=== PATIENT | female | born 1940 | race Caucasian/White ===

== ENCOUNTER 2016-06-28 08:05 | Inpatient (IN) | payer MEDICARE, OTHER ==
[~2016-06-28] VITALS: Ht 172.7 cm; Wt 91.0 kg
[2016-06-28 09:09] LABS: Basophils # (auto) 0 uL; Basophils % (auto) 0.3 % (0.0-2.0); Eosinophils # (auto) 0.1 uL; Eosinophils % (auto) 0.8 % (0.0-7.0); Hematocrit 37.7 % (36.0-46.0); Hemoglobin 12.3 g/dL (12.2-16.2); Lymphocytes # (auto) 1.4 uL; Lymphocytes % (auto) 16.5 % (10.0-50.0); Mean Corpuscular Hemoglobin 29.3 pg (28.0-32.0); Mean Corpuscular Hgb Conc. 32.7 g/dL (32.0-36.0); Mean Corpuscular Volume 89.5 fL (80.0-100.0); Monocytes # (auto) 0.6 uL; Monocytes % (auto) 7.3 % (0.0-12.0); Neutrophils # (auto) 6.3 uL; Neutrophils % (auto) 75.1 % (37.0-80.0); Platelet Count (auto) 306 10^3/uL (140-450); Red Cell Distribution Width 16.3 % (11.6-16.0); White Blood Cell 8.4 10^3/uL (4.4-10.8)
[2016-06-28 09:25] LABS: Albumin 3.1 g/dL (3.4-5.0); Anion Gap 11 (5-15); Aspartate Aminotransferase 23 U/L (15-37); BUN/Creatinine Ratio 17.2; Blood Urea Nitrogen 17 mg/dL (7-18); Calcium 8.8 mg/dL (8.5-10.1); Carbon Dioxide 25 mmol/L (21-32); Chloride 102 mmol/L (98-107); GFR African American 70 mL/min; GFR Non-African American 58 mL/min; Glucose 244 mg/dL (74-106); Sodium 138 mmol/L (136-145)
[2016-06-28 09:29] LABS: Alkaline Phosphatase 83 U/L (45-117); Bilirubin, Total 0.5 mg/dL (0.2-1.0); Total Protein 7.7 g/dL (6.4-8.2)
[2016-06-28] MEDS ORDERED: LORazepam 0.5 MG TAB PO ONE (09:45)
[2016-06-28] MEDS ORDERED: NITROGLYCERIN 0.2MG/HR TOPICAL PATCH TD ONE ×2 (09:45→12:30)
[2016-06-28] MEDS ORDERED: ASPirin 325 MG TAB PO ONE (09:45)
[2016-06-28 10:15] LABS: B-Type Natriuretic Peptide 234.02 pg/mL (0-100); Temperature: 24.1 C (20.0-25.0)
[2016-06-28 10:27] LABS: Partial Thromboplastin Time 28.9 sec (22.64-33.71)
[2016-06-28] MEDS ORDERED: MORPHINE SULF INJ 2 MG/ML SYRINGE 1ML IV PRN (12:30)
[2016-06-28] MEDS ORDERED: DEXTROSE (50%) 50ML SYRG IV PRN (12:30)
[2016-06-28] MEDS ORDERED: FUROSEMIDE 40 MG TAB PO ONE (12:30)
[2016-06-28] MEDS ORDERED: NITROGLYCERIN 0.4 MG SL TAB SL PRN (12:30)
[2016-06-28] MEDS ORDERED: POTASSIUM CHL 20 Meq TABLET PO ONE (12:30)
[2016-06-28 12:34] LABS: Urine RBC None Seen /hpf (0 - 4)
[2016-06-28] MEDS ORDERED: LEVOTHYROXINE SODIUM 50 MCG TAB PO ONE (12:45)
[2016-06-28] MEDS ORDERED: PANTOPRAZOLE 40 MG TAB PO ONE (12:45)
[2016-06-28] MEDS ORDERED: METOPROLOL TARTRATE 50 MG TAB PO ONE (12:45)
[2016-06-28] MEDS ORDERED: ASPirin 81 mg TAB PO ONE (12:45)
[2016-06-28 12:57] LABS: Urine Bilirubin Negative (Negative); Urine Blood Negative /uL (Negative); Urine Color Yellow (Yellow); Urine Glucose Normal (Normal); Urine Ketone Negative (Negative); Urine Nitrite Negative (Negative); Urine Squamous Epithelial Cell FEW /hpf (<5); Urine Urobilinogen Normal (Negative)
[2016-06-28 13:49] LABS: Prothrombin Time 11.3 sec (9.37-12.3)
[2016-06-28 16:50] VITALS: BP 135/45
[2016-06-28 17:00] VITALS: BP 135/45
[2016-06-28] MEDS: InsuLIN REG 1unit/0.01ml Soln (100units/ml) SC SCH ×2 (17:26→22:26)
[2016-06-28] MEDS: ACCU-CHEK COMFORT CURVE STRIP VI SCH ×2 (17:26→22:19)
[2016-06-28 20:00] VITALS: BP 132/53
[2016-06-28 22:00] VITALS: BP 132/53
[2016-06-28] MEDS: METOPROLOL TARTRATE 50 MG TAB PO SCH (22:00)
[2016-06-28] MEDS: ATORVASTATIN 20 MG TAB PO SCH (22:25)
[2016-06-29 05:12] VITALS: BP 131/62
[2016-06-29] MEDS: ACCU-CHEK COMFORT CURVE STRIP VI SCH ×4 (06:11→22:02)
[2016-06-29 06:16] LABS: Basophils # (auto) 0 uL; Basophils % (auto) 0.3 % (0.0-2.0); Eosinophils # (auto) 0.1 uL; Eosinophils % (auto) 1.2 % (0.0-7.0); Hematocrit 39.3 % (36.0-46.0); Lymphocytes # (auto) 1.6 uL; Lymphocytes % (auto) 17.7 % (10.0-50.0); Mean Corpuscular Hemoglobin 29.4 pg (28.0-32.0); Mean Corpuscular Volume 89.3 fL (80.0-100.0); Mean Platelet Volume 6.9 fL (7.4-10.4); Monocytes # (auto) 0.8 uL; Monocytes % (auto) 9.5 % (0.0-12.0); Neutrophils # (auto) 6.4 uL; Neutrophils % (auto) 71.3 % (37.0-80.0); Platelet Count (auto) 312 10^3/uL (140-450); Red Cell Distribution Width 16.1 % (11.6-16.0); White Blood Cell 8.9 10^3/uL (4.4-10.8)
[2016-06-29] MEDS: LEVOTHYROXINE SODIUM 50 MCG TAB PO SCH (06:16)
[2016-06-29] MEDS: InsuLIN REG 1unit/0.01ml Soln (100units/ml) SC SCH ×4 (06:17→22:19)
[2016-06-29 06:38] LABS: BUN/Creatinine Ratio 19.4; Calcium 8.8 mg/dL (8.5-10.1); Potassium 3.8 mmol/L (3.5-5.1)
[2016-06-29 08:00] VITALS: BP 120/51
[2016-06-29 08:30] VITALS: BP 120/51
[2016-06-29] MEDS ORDERED: ADENOSINE 76 MG in GIVE UN-DILUTED 0 ML IV STA (08:40)
[2016-06-29] MEDS ORDERED: POTASSIUM CHL 20 Meq TABLET PO SCH (10:00)
[2016-06-29] MEDS ORDERED: FUROSEMIDE 40 MG TAB PO SCH (10:00)
[2016-06-29] MEDS ORDERED: HYDROcodone-ACET 5/325MG TAB PO PRN (11:30)
[2016-06-29] MEDS: METOPROLOL TARTRATE 50 MG TAB PO SCH ×2 (11:52→22:01)
[2016-06-29] MEDS: PANTOPRAZOLE 40 MG TAB PO SCH (11:52)
[2016-06-29] MEDS: NITROGLYCERIN 0.2MG/HR TOPICAL PATCH TD SCH (11:53)
[2016-06-29] MEDS: ASPirin 81 mg TAB PO SCH (11:54)
[2016-06-29] MEDS: INSULIN DETEMIR(LEVEMIR) 1unit/0.01ml Soln (100units/ml) SC SCH ×2 (12:23→22:20)
[2016-06-29 13:19] VITALS: BP 141/55
[2016-06-29 16:54] VITALS: BP 128/81
[2016-06-29] MEDS ORDERED: FUROSEMIDE 20 MG TAB PO ONE (18:30)
[2016-06-29] MEDS ORDERED: POTASSIUM CHL 20 Meq TABLET PO ONE (18:30)
[2016-06-29 22:00] VITALS: BP 104/54
[2016-06-29] MEDS: ATORVASTATIN 20 MG TAB PO SCH (22:01)
[2016-06-30 05:00] VITALS: BP 119/59
[2016-06-30] MEDS: ACCU-CHEK COMFORT CURVE STRIP VI SCH ×2 (06:44→11:47)
[2016-06-30] MEDS: LEVOTHYROXINE SODIUM 50 MCG TAB PO SCH (06:44)
[2016-06-30] MEDS: InsuLIN REG 1unit/0.01ml Soln (100units/ml) SC SCH ×2 (06:45→11:52)
[2016-06-30 08:00] VITALS: BP 131/59
[2016-06-30 09:20] VITALS: BP 131/59
[2016-06-30] MEDS ORDERED: POTASSIUM CHL 20 Meq TABLET PO SCH (10:00)
[2016-06-30] MEDS: NITROGLYCERIN 0.2MG/HR TOPICAL PATCH TD SCH (10:00)
[2016-06-30] MEDS ORDERED: FUROSEMIDE 20 MG TAB PO SCH (10:00)
[2016-06-30] MEDS: ASPirin 81 mg TAB PO SCH (10:36)
[2016-06-30] MEDS: METOPROLOL TARTRATE 50 MG TAB PO SCH (10:36)
[2016-06-30] MEDS: PANTOPRAZOLE 40 MG TAB PO SCH (10:36)
[2016-06-30] MEDS: INSULIN DETEMIR(LEVEMIR) 1unit/0.01ml Soln (100units/ml) SC SCH (11:32)
[2016-06-30 12:30] VITALS: BP 158/65
[2016-06-30 14:09] VITALS: BP 158/65
== END 2016-06-30 14:25 | disposition home health service (06) | DRG 292 ==
LOC: ER 08:07 → TELE 08:08 → TELE-WESTW 17:05
PROVIDERS: ADMIT Internal Medicine; ATTEND Internal Medicine
DX: I11.0 Hypertensive heart disease with heart failure (principal); E44.1 Mild protein-calorie malnutrition; I25.10 Atherosclerotic heart disease of native coronary artery without angina pectoris; I50.33 Acute on chronic diastolic (congestive) heart failure; E11.9 Type 2 diabetes mellitus without complications; E66.9 Obesity, unspecified; E03.9 Hypothyroidism, unspecified; I05.0 Rheumatic mitral stenosis; I48.91 Unspecified atrial fibrillation; Z95.1 Presence of aortocoronary bypass graft; Z86.73 Personal history of transient ischemic attack (TIA), and cerebral infarction without residual deficits; Z68.30 Body mass index [BMI] 30.0-30.9, adult; Z90.710 Acquired absence of both cervix and uterus; Z90.49 Acquired absence of other specified parts of digestive tract
CPT/HCPCS: 36415; 71020; 78452; 80048; 80053; 80061; 81001; 82962; 83036; 83735; 83880; 84443; 84484; 85025; 85610; 85730; 87081; 93005; 93017; 93306; J0153; J1815

== ENCOUNTER → 2016-10-20 | Outpatient (CLI) | payer MEDICARE, OTHER | END | disposition home or self-care (01) | LOC: XYW 10:43 | PROVIDERS: ATTEND Internal Medicine Cardiovascular Disease | DX: I08.0 Rheumatic disorders of both mitral and aortic valves (principal); I70.0 Atherosclerosis of aorta; I10 Essential (primary) hypertension | CPT/HCPCS: 93306 ==

== ENCOUNTER → 2016-11-30 | Outpatient (CLI) | payer MEDICARE, MEDICAID ==
[~2016-11-30] MED LIST: AGG25C PO; HYDR12.56 PO; INSU1INJ15 SC; LEVEMIR SC; LISI-275 PO; METO-159 PO
[2016-11-30 14:08] LABS: Basophils # (auto) 0.1 uL; Basophils % (auto) 0.9 % (0.0-2.0); Eosinophils # (auto) 0.1 uL; Eosinophils % (auto) 1.1 % (0.0-7.0); Hematocrit 44.5 % (36.0-46.0); Hemoglobin 14.9 g/dL (12.2-16.2); Mean Corpuscular Hemoglobin 29.9 pg (28.0-32.0); Mean Corpuscular Hgb Conc. 33.4 g/dL (32.0-36.0); Mean Corpuscular Volume 89.5 fL (80.0-100.0); Mean Platelet Volume 6.8 fL (6.9-10.8); Monocytes # (auto) 1.1 uL; Monocytes % (auto) 10.2 % (0.0-12.0); Neutrophils # (auto) 6.4 uL; Neutrophils % (auto) 59.8 % (37.0-80.0); Nucleated Red Blood Cells % 0.1 %; Platelet Count (auto) 281 10^3/uL (140-450); Red Cell Distribution Width 15.6 % (11.8-14.3); White Blood Cell 10.7 10^3/uL (4.4-10.8)
[2016-11-30 14:56] LABS: INR 0.97 (0.9-1.15); Partial Thromboplastin Time 23.4 sec (22.64-33.71); Prothrombin Time 10.6 sec (9.37-12.3)
[2016-11-30 17:18] LABS: Albumin 3.4 g/dL (3.4-5.0); BUN/Creatinine Ratio 19.3; Bilirubin, Total 0.4 mg/dL (0.2-1.0); Calcium 9.2 mg/dL (8.5-10.1); Total Protein 8.5 g/dL (6.4-8.2)
== END | disposition home or self-care (01) ==
LOC: LAB 13:14
PROVIDERS: ATTEND Internal Medicine Cardiovascular Disease
DX: Z01.818 Encounter for other preprocedural examination (principal); I05.0 Rheumatic mitral stenosis; Z79.01 Long term (current) use of anticoagulants
CPT/HCPCS: 36415; 80053; 85025; 85610; 85730

== ENCOUNTER 2016-12-01 07:00 | Day surgery (SDC) | payer MEDICARE, MEDICAID ==
[~2016-12-01] VITALS: Ht 172.7 cm; Wt 91.0 kg
[2016-12-01] MEDS ORDERED: ANGIOMAX 250 MG VIAL IV ONE (07:43)
[2016-12-01] MEDS ORDERED: SODIUM CHL 0.9% 0 ML ONE (07:44)
[2016-12-01] MEDS ORDERED: MIDAZOLAM HCL 1MG/1ML-2 ML VIAL ONE (07:44)
[2016-12-01] MEDS ORDERED: fentaNYL CITRATE 100 MCG/2 ML VL ONE (07:44)
[2016-12-01] MEDS ORDERED: IOHEXOL 350 MG/ML 100ML IJ ONE (07:50)
[2016-12-01] MEDS ORDERED: LIDOCAINE 2%HCL (LOCAL ANESTH.) INJ 20ML MDV ONE (07:50)
[2016-12-01] MEDS ORDERED: METO-159 PO (08:09)
[2016-12-01] MEDS ORDERED: HYDR12.56 PO (08:09)
[2016-12-01] MEDS ORDERED: AGG25C PO (08:09)
[2016-12-01] MEDS ORDERED: LISI-275 PO (08:09)
[2016-12-01] MEDS ORDERED: LEVEMIR SC (08:09)
[2016-12-01] MEDS ORDERED: INSU1INJ15 SC (08:09)
== END 2016-12-01 12:05 | disposition home or self-care (01) ==
LOC: CATH 07:00
PROVIDERS: ATTEND Internal Medicine Cardiovascular Disease
DX: I25.10 Atherosclerotic heart disease of native coronary artery without angina pectoris (principal); I05.0 Rheumatic mitral stenosis; Z95.1 Presence of aortocoronary bypass graft; E11.9 Type 2 diabetes mellitus without complications; I10 Essential (primary) hypertension; Z88.6 Allergy status to analgesic agent; Z88.0 Allergy status to penicillin
CPT/HCPCS: 36600; 82805; 82962; 93454; 93456; C1751; C1760; C1769; C1894; J1644; J2250; J3010; Q9967; 99152; 99153

== ENCOUNTER 2018-04-08 00:22 | Emergency (ER) | payer MEDICARE, MEDICAID ==
[~2018-04-08] VITALS: Ht 162.6 cm; Wt 72.6 kg
[2018-04-08 01:53] LABS: Basophils # (auto) 0 uL; Basophils % (auto) 0.4 % (0.0-2.0); Eosinophils # (auto) 0 uL; Eosinophils % (auto) 0.1 % (0.0-7.0); Hematocrit 38.4 % (36.0-46.0); Hemoglobin 11.9 g/dL (12.2-16.2); Lymphocytes % (auto) 10.3 % (10.0-50.0); Mean Corpuscular Hemoglobin 27.3 pg (28.0-32.0); Mean Corpuscular Volume 88.2 fL (80.0-100.0); Monocytes % (auto) 9.9 % (0.0-12.0); Neutrophils # (auto) 7.8 uL; Neutrophils % (auto) 79.3 % (37.0-80.0); Nucleated Red Blood Cells % 0.1 %; Platelet Count (auto) 115 10^3/uL (140-450); Red Blood Cells 4.36 10^6/uL (4.0-5.20); Red Cell Distribution Width 18.8 % (11.8-14.3); White Blood Cell 9.9 10^3/uL (4.4-10.8)
[2018-04-08 02:07] LABS: Albumin 3.2 g/dL (3.4-5.0); BUN/Creatinine Ratio 21.7; Calcium 9.7 mg/dL (8.5-10.1); Potassium 4.6 mmol/L (3.5-5.1)
[2018-04-08 02:12] LABS: Bilirubin, Total 1.2 mg/dL (0.2-1.0); Total Protein 9.1 g/dL (6.4-8.2)
[2018-04-08] MEDS ORDERED: MORPHINE SULFATE 4 MG/ML SYR/VIAL IV ONE (05:45)
[2018-04-08] MEDS ORDERED: ONDANSETRON HCL 4 MG/2 ML VIAL IV ONE (05:45)
[2018-04-08] MEDS ORDERED: SODIUM CHLORIDE 0.9% 1,000 ML IV ONE ×2 (05:45→06:43)
[2018-04-08] MEDS ORDERED: ONDANSETRON HCL 4 MG/2 ML VIAL ONE (07:02)
[2018-04-08 09:35] VITALS: BP 111/68
[2018-04-08 09:56] LABS: Urine Bacteria FEW /hpf (None Seen); Urine Blood Negative /uL (Negative); Urine Hyaline Cast FEW /lpf (0 - 2); Urine Specific Gravity 1.016 (1.001-1.035); Urine WBC 2 /hpf (0 - 5)
== END 2018-04-08 11:14 | disposition home or self-care (01) ==
LOC: EDBD 00:22 → ER 00:22
DX: K80.20 Calculus of gallbladder without cholecystitis without obstruction (principal); D69.6 Thrombocytopenia, unspecified; E11.65 Type 2 diabetes mellitus with hyperglycemia; K80.50 Calculus of bile duct without cholangitis or cholecystitis without obstruction; R16.0 Hepatomegaly, not elsewhere classified; E11.21 Type 2 diabetes mellitus with diabetic nephropathy; I25.709 Atherosclerosis of coronary artery bypass graft(s), unspecified, with unspecified angina pectoris; E46 Unspecified protein-calorie malnutrition; I48.91 Unspecified atrial fibrillation; I11.0 Hypertensive heart disease with heart failure; I50.9 Heart failure, unspecified; E78.5 Hyperlipidemia, unspecified; I25.2 Old myocardial infarction; E07.9 Disorder of thyroid, unspecified; Z88.0 Allergy status to penicillin; Z88.5 Allergy status to narcotic agent; Z79.82 Long term (current) use of aspirin; Z79.4 Long term (current) use of insulin; Z79.899 Other long term (current) drug therapy; Z86.73 Personal history of transient ischemic attack (TIA), and cerebral infarction without residual deficits; Z95.1 Presence of aortocoronary bypass graft; Z90.49 Acquired absence of other specified parts of digestive tract; Z95.0 Presence of cardiac pacemaker; Z90.710 Acquired absence of both cervix and uterus; Z68.27 Body mass index [BMI] 27.0-27.9, adult
CPT/HCPCS: 36415; 71046; 74176; 76705; 80053; 81001; 82150; 82962; 83690; 83735; 84443; 84484; 85025; 93005; 96361; 96374; 96375; 99284; J2270; J2405; J7030

== ENCOUNTER 2019-09-04 19:23 | Inpatient (IN) | payer MEDICARE, OTHER ==
[~2019-09-04] VITALS: Ht 170.2 cm; Wt 79.4 kg
[2019-09-04 20:23] LABS: Basophils # (auto) 0.1 10 ^3/uL (0-0.2); Basophils % (auto) 0.5 % (0.0-2.0); Eosinophils # (auto) 0 10 ^3/uL (0-0.8); Eosinophils % (auto) 0.1 % (0.0-7.0); Hematocrit 27.1 % (36.0-46.0); Hemoglobin 8.6 g/dL (12.2-16.2); Lymphocytes # (auto) 0.9 10 ^3/uL (0.4-5.4); Lymphocytes % (auto) 6.9 % (10.0-50.0); Mean Corpuscular Hemoglobin 27.5 pg (28.0-32.0); Mean Corpuscular Hgb Conc. 31.9 g/dL (32.0-36.0); Mean Corpuscular Volume 86.1 fL (80.0-100.0); Monocytes # (auto) 1.3 10 ^3/uL (0-1.3); Monocytes % (auto) 9.6 % (0.0-12.0); Neutrophils # (auto) 10.9 10 ^3/uL (1.6-8.6); Neutrophils % (auto) 82.9 % (37.0-80.0); Platelet Count (auto) 232 10^3/uL (140-450); Red Blood Cells 3.15 10^6/uL (4.0-5.20); Red Cell Distribution Width 19.6 % (11.8-14.3); White Blood Cell 13.1 10^3/uL (4.4-10.8)
[2019-09-04 20:40] LABS: Chloride 101 mmol/L (98-107); Potassium 3.6 mmol/L (3.5-5.1); Sodium 136 mmol/L (136-145)
[2019-09-04 20:44] LABS: Alanine Aminotransferase 10 U/L (13-56); Albumin 2.1 g/dL (3.4-5.0); Anion Gap 6 (5-15); Aspartate Aminotransferase 22 U/L (15-37); BUN/Creatinine Ratio 35.8; Blood Urea Nitrogen 53 mg/dL (7-18); Calcium 7.8 mg/dL (8.5-10.1); Carbon Dioxide 29 mmol/L (21-32); GFR African American 44 mL/min; GFR Non-African American 36 mL/min; Glucose 114 mg/dL (74-106)
[2019-09-04 20:46] LABS: Alkaline Phosphatase 97 U/L (45-117); Bilirubin, Total 0.6 mg/dL (0.2-1.0); Total Protein 6.5 g/dL (6.4-8.2)
[2019-09-04 20:49] LABS: INR 1.17 (0.9-1.15); Partial Thromboplastin Time 40.3 sec (23.64-32.05)
[2019-09-04] MEDS ORDERED: FUROSEMIDE 20 MG/2 ML VIAL IV ONE (21:30)
[2019-09-04 22:28] LABS: Urine Bacteria FEW /hpf (None Seen); Urine Blood Negative /uL (Negative); Urine Hyaline Cast FEW /lpf (0 - 2); Urine Mucus FEW (None Seen); Urine Specific Gravity 1.011 (1.001-1.035); Urine WBC 117 /hpf (0 - 5); Urine WBC Clumps PRESENT /hpf (None Seen)
[2019-09-04] MEDS ORDERED: TEMAZEPAM 15 MG CAP PO PRN (22:45)
[2019-09-04] MEDS ORDERED: NITROGLYCERIN 0.4 MG SL TAB SL PRN (22:45)
[2019-09-04] MEDS ORDERED: DEXTROSE (50%) 50ML SYRG IV PRN (22:45)
[2019-09-04] MEDS ORDERED: MORPHINE SULF INJ 2 MG/ML SYRINGE 1ML IV PRN (22:45)
[2019-09-05] VITALS (11 sets, daily range): BP systolic 85–126; BP diastolic 44–64
--- NOTE | 2019-09-05 00:10 | NUR ---
Telemetry admit from ER PRERNA LOWRY admitted to Telemetry unit after SBAR received. Patient oriented to JAYSON LOPEZ RN primary RN, unit, room, bed, and unit policies regarding patient care and visiting hours. Patient now on continuous telemetry monitoring, tele box # 13 and telemetry reading on arrival to unit is Sinus Rhythm at 65BPM. Patient placed on bedside oxygen, weighed by bedscale and encouraged to call if they need something. All questions and concerns addressed, patient verbalized understanding. Note:Patient arrived via gurney related to general weakness, has a stevenson catheter draining cloudy urine to downdrain bag. Patient is alert and oriented and hard of hearing. Patient has distendid abdomen, no distress noted, saturating at 98% on 3LNC. Patient states she has pain of 2/10 to abdomen, but with proper reposition to side she is comfortable. Patient also has small red raised spots all over body which she calls psoriasis, has discoloration/bruising to upper extremities. Bed placed in lowest position, bed alarm turned on and call light within reach.
--- NOTE | 2019-09-05 04:04 | NUR ---
Med Rec Patient's med rec is not done. Patient states she does not remember the names/dose of medications he is taking. Will call family.
[2019-09-05] MEDS: InsuLIN REG 1unit/0.01ml Soln (100units/ml) SC SCH ×4 (06:08→22:13)
[2019-09-05] MEDS: ACCU-CHEK COMFORT CURVE STRIP VI SCH ×4 (06:08→22:12)
[2019-09-05] MEDS: LEVOTHYROXINE SODIUM 25 MCG TAB PO SCH (06:26)
--- NOTE | 2019-09-05 07:20 | NUR ---
Med Rec Spoke with Gila, daughter and medication reconciliation done.
[2019-09-05] MEDS ORDERED: ASPI-404 PO (07:30)
[2019-09-05] MEDS ORDERED: PROP60CA34 PO ×2 (07:30→07:37)
[2019-09-05] MEDS ORDERED: ENOX80IN SC (07:30)
[2019-09-05] MEDS ORDERED: METO5TAB56 PO (07:30)
[2019-09-05] MEDS ORDERED: LEVO25TA49 PO (07:30)
[2019-09-05] MEDS ORDERED: ATO40T PO (07:30)
[2019-09-05] MEDS ORDERED: PANT1INJ3 IV (07:30)
[2019-09-05] MEDS ORDERED: TRAM50TA2 PO (07:30)
[2019-09-05] MEDS ORDERED: FURO10SO PO (07:30)
[2019-09-05] MEDS ORDERED: DOCU-94 PO ×2 (07:30)
[2019-09-05] MEDS ORDERED: URSO1TAB7 PO (07:37)
[2019-09-05] MEDS ORDERED: MAGN400T40 PO (07:37)
--- NOTE | 2019-09-05 08:00 | NUR ---
ASSESSMENT NOTE PT IS ALERT TO SELF, CONFUSED ON TIMES, SITUATION, VERY OF HEARING, PT HAS LARGE FIRM ABDOMEN , PT IS LEANING AT HER LEFT SIDE, APPEAR UNCOMFORTABLY, TRY TO REPOSITION PT AT THE OTHER SIDE, PT CONTINUE FEELING UNCOMFORTABLE DUE TO ASCITES, WRENER CATHETER TO GRAVITY, NEXT TO THE NURSING STATION, CONTINUE ON CONTACT AND DROPLET PRECAUTIONS, CHECK ON PT AT ALL TIMES, CALL LIGHT WITHIN REACH
--- NOTE | 2019-09-05 09:00 | NUR ---
BREAKFAST ASSISTED PT WITH HER MEAL, PT WAS ABLE TO EAT 25%
--- NOTE | 2019-09-05 09:30 | NUR ---
DR LUQUE CALLED FOLLOWING UP ON PT, CALLED LAB TO DRAW MORNING BLOOD. CONTINUE AWAITING FOR THE COVID RESULTS IN ORDER TO PROCEED WITH THE PARACENTESIS
[2019-09-05] MEDS ORDERED: ASPirin 81 mg TAB PO SCH (10:00)
[2019-09-05] MEDS ORDERED: FUROSEMIDE 40 MG TAB PO SCH (10:00)
--- NOTE | 2019-09-05 10:03 | NUR ---
JULIO PATIENT'S DAUGHTER CALLED, UPDATE GIVEN TO HER
--- NOTE | 2019-09-05 10:30 | NUR ---
JENNIFER MORALES, PATIENT'S GRANDDAUGHTER, CALLED TO FOLLOW UP ON HER GRANDMA
--- NOTE | 2019-09-05 10:35 | NUR ---
SCALE MANAGER AT BED SIDE
[2019-09-05 10:47] LABS: Basophils # (auto) 0.1 10 ^3/uL (0-0.2); Basophils % (auto) 0.6 % (0.0-2.0); Eosinophils # (auto) 0 10 ^3/uL (0-0.8); Hematocrit 28.2 % (36.0-46.0); Lymphocytes # (auto) 0.7 10 ^3/uL (0.4-5.4); Lymphocytes % (auto) 5.2 % (10.0-50.0); Mean Corpuscular Hemoglobin 27.7 pg (28.0-32.0); Mean Corpuscular Hgb Conc. 31.8 g/dL (32.0-36.0); Mean Corpuscular Volume 87.2 fL (80.0-100.0); Monocytes # (auto) 0.9 10 ^3/uL (0-1.3); Monocytes % (auto) 6.4 % (0.0-12.0); Neutrophils # (auto) 11.8 10 ^3/uL (1.6-8.6); Neutrophils % (auto) 87.8 % (37.0-80.0); Platelet Count (auto) 219 10^3/uL (140-450); Red Blood Cells 3.24 10^6/uL (4.0-5.20); White Blood Cell 13.4 10^3/uL (4.4-10.8)
[2019-09-05 10:55] LABS: Red Cell Distribution Width 20.5 % (11.8-14.3)
[2019-09-05 11:04] LABS: BUN/Creatinine Ratio 36.9; Calcium 8.2 mg/dL (8.5-10.1)
[2019-09-05 11:07] LABS: INR 1.25 (0.9-1.15); Partial Thromboplastin Time 31.2 sec (23.64-32.05)
[2019-09-05] MEDS ORDERED: HALOPERIDOL LACTATE 5 MG/ML INJ VIAL ONE (14:26)
--- NOTE | 2019-09-05 14:50 | NUR ---
BACK FROM LUNCH, TOLD BY DR LUQUE THAT PT HAS A NOSE BLEED, 2 RN AT BED SIDE WITH APPLYING PRESSURE ON PT " NOSE, I TOOK OVER, CONTINUE APPLYING PRESSURE OVER PATIENT'S NOSTRIL , PT LEFT NOSTRIL IS DRIPPING BLOOD MORE THAN THE RT NOSTRIL, OCCASIONALLY LARGE BLOOD CLOTS COME FROM PT" MOUTH, DR LUQUE INFORM ME THAT DR BERGERON IS COMING FROM ER TO INSERT NOSE PROPS, WILL GIVE FFP IV, DR LUQUE CALLED PATIENT'S DAUGHTER OVER THE PHONE FOR UPDATE
[2019-09-05] MEDS: ONDANSETRON HCL 4 MG/2 ML VIAL IV PRN (14:55)
[2019-09-05] MEDS ORDERED: MORPHINE SULF INJ 2 MG/ML SYRINGE 1ML IV PRN (15:15)
--- NOTE | 2019-09-05 16:10 | NUR ---
CONTINUE APPLYING PRESSURE OVER PT"S BOTH NOSTRIL, PT ON HIGH FINLEY POSITION, DR LAKE CAME IN AND APPLY A SOFT INFLATABLE PROPE ON PATIENT'S RT NOSTRIL, AFTER EXPLAIN IT TO PT, ALSO DR BERGERON TRY TO INSERT A SOFT INFLATABLE PROPE AT THE LEFT NOSTRIL, IT WAS DIFFICULT TO BE A DANCE ALL THE WAY IN DUE TO NASAL SEPTAL DEVIATION, WAS INSERTED ALMOST HALF WAY, FOLLOWED BY PT SPIT OUT LARGE BLOOD, THEN THE BLEEDING COMPLETELY STOP, PT IS TRYING TO TAKE IT OFF STATED I WANT TO BLOW> HOLD PT HAND, SUPPORT AND ASSURANCE GIVEN TO HER, STAY WITH PT, CHARGE NURSE J[place] MORALES MADE AWARE
[2019-09-05] MEDS ORDERED: FUROSEMIDE 20 MG/2 ML VIAL IV ONE ×2 (16:15→17:45)
[2019-09-05] MEDS ORDERED: WARFARIN SODIUM 2.5 MG TAB PO ONE (17:00)
--- NOTE | 2019-09-05 18:10 | NUR ---
FRESH FROZEN PLASMA TRANSFUSION INDITED, PRE SET OF VS TAKEN, CONSENTS OBTAIN FROM JULIO PATIENT'S DAUGHTER OVER THE PHONE, PT NOTIFIED, PER JULIO STATED THIS HAPPEN TO MY MOM BEFORE, NOSE BLEED AND SHE HAVE TO GET THE PLASMA TRANSFUSION>
--- NOTE | 2019-09-05 18:20 | NUR ---
JO CAUSEY / NURSE AIDE AT BED SIDE REPORT GIVEN TO HER, CONTINUE MONITORING
--- NOTE | 2019-09-05 18:55 | NUR ---
PT TOLERATED TRANSFUSION WELL, NO DISTRESS NOTED, TRYING TO GO BACK TO SLEEP, SITTER AT BED SIDE
--- NOTE | 2019-09-05 19:05 | NUR ---
PT CONTINUE STABLE, CONTINUE MONITORING
--- NOTE | 2019-09-05 19:20 | NUR ---
Opening Shift Note Received report from day RN. Assumed care of patient, awake and alert. No S/S of distress/SOB or pain. Patient is saturating 93% on room air . Instructed on POC and to call for assist PRN, will continue to monitor for changes Q1hr and PRN.
[2019-09-05] MEDS: ATORVASTATIN 20 MG TAB PO SCH (22:19)
[2019-09-06] VITALS (14 sets, daily range): BP systolic 93–118; BP diastolic 37–61
--- NOTE | 2019-09-06 00:40 | NUR ---
Called/paged called re: pt blood pressure . Waiting for call back. Continue care.
--- NOTE | 2019-09-06 00:59 | NUR ---
returned call returned call, updated on patient status and reason for call, no new orders received. Continue care.
[2019-09-06 05:52] LABS: Basophils # (auto) 0 10 ^3/uL (0-0.2); Basophils % (auto) 0.3 % (0.0-2.0); Eosinophils # (auto) 0 10 ^3/uL (0-0.8); Hemoglobin 8.1 g/dL (12.2-16.2); Lymphocytes # (auto) 0.9 10 ^3/uL (0.4-5.4); Lymphocytes % (auto) 8.4 % (10.0-50.0); Mean Corpuscular Hemoglobin 28.4 pg (28.0-32.0); Mean Corpuscular Hgb Conc. 32.2 g/dL (32.0-36.0); Mean Corpuscular Volume 88.3 fL (80.0-100.0); Monocytes # (auto) 1.2 10 ^3/uL (0-1.3); Monocytes % (auto) 11.6 % (0.0-12.0); Neutrophils # (auto) 8.5 10 ^3/uL (1.6-8.6); Neutrophils % (auto) 79.7 % (37.0-80.0); Platelet Count (auto) 205 10^3/uL (140-450); Red Blood Cells 2.84 10^6/uL (4.0-5.20); White Blood Cell 10.6 10^3/uL (4.4-10.8)
[2019-09-06 05:53] LABS: Red Cell Distribution Width 20.4 % (11.8-14.3)
[2019-09-06 05:55] LABS: INR 1.32 (0.9-1.15)
[2019-09-06 05:59] LABS: Albumin 2.2 g/dL (3.4-5.0); Calcium 8.1 mg/dL (8.5-10.1); Potassium 4.1 mmol/L (3.5-5.1)
[2019-09-06 06:05] LABS: BUN/Creatinine Ratio 36.3; Bilirubin, Total 0.9 mg/dL (0.2-1.0); Total Protein 6.8 g/dL (6.4-8.2)
[2019-09-06] MEDS: ACCU-CHEK COMFORT CURVE STRIP VI SCH ×4 (06:07→22:35)
[2019-09-06] MEDS: LEVOTHYROXINE SODIUM 25 MCG TAB PO SCH (06:12)
[2019-09-06] MEDS: InsuLIN REG 1unit/0.01ml Soln (100units/ml) SC SCH ×4 (06:12→22:41)
--- NOTE | 2019-09-06 07:24 | NUR ---
end of shift notes endorse care to day shift RN , pt [id number] , no sign and symptoms of distress or sob
--- NOTE | 2019-09-06 08:00 | NUR ---
ASSESSMENT NOTE PT IS RESTING IN BED IN LOW FINLEY POSITION, SELF REPOSITION NEEDED, PT CONTINUE TO HAVE A NASAL PROBE IN THE RT NOSTRIL, PER SPINNING SUPERVISOR RN, PT PULLED OUT THE NASAL PROBE AT THE LEFT NOSTRIL, BUT THERE IS NO BLEEDING NOTED, NPO, WERNER CATHETER TO GRAVITY, SITTER AT BED SIDE AT ALL TIMES, VITAL SIGNS ARE STABLE, CONTINUE MONITORING
--- NOTE | 2019-09-06 09:38 | NUR ---
A TELEPHONE CONSENTS OBTAIN OVER THE PHONE FROM JULIO, PATIENT'S DAUGHTER, AGREE FOR THE PARACENTESIS PROCEDURE, WITH ARTIE VILLARREAL RN
--- NOTE | 2019-09-06 10:00 | NUR ---
JENNIFER PATIENT'S GRANDDAUGHTER CALLED FOR FOLLOW UP
--- NOTE | 2019-09-06 11:00 | NUR ---
RADIOLOGIST TECH AT BED SIDE WITH CHEST X RAY
--- NOTE | 2019-09-06 11:30 | NUR ---
DR LUQUE AT BED SIDE FOLLOWING UP ON PT, AWARE THAT BS IS 137, SAID TO HOLD THE INSULIN, NEW ORDERS OBTAIN
[2019-09-06] MEDS ORDERED: traMADol HCL 50 MG TAB PO PRN (11:45)
[2019-09-06] MEDS ORDERED: ALBUMIN 25% 100 ML IV ONE (12:30)
--- NOTE | 2019-09-06 13:15 | NUR ---
[facility]TR[facility]OUND LATECHIA FROM [facility]TR[facility] CALLED FOLLOWING UP ON PATIENT'S COVID TEST RESULTS, MADE AWARE THAT ITS NOT AVAILABLE YET, PT PT IN NEED FOR PARACENTESIS, SAID THAT THE RADIOLOGIST DOES NOT WANT TO PERFORM IT UNLESS WE HAVE A RESULTS ?
--- NOTE | 2019-09-06 13:19 | NUR ---
SPOKE WITH DR LUQUE REGARDING THE DELAY FOR PARACENTESIS, SAID THAT SHE WILL CALL THE RADIALLY DEPARTMENT
--- NOTE | 2019-09-06 13:30 | NUR ---
DR LUQUE CALLED BACK , INFORM ME THAT SHE IS AWARE OF THE RADIOLOGIST OPINION OF WHY NOT WANT TO DO IT
--- NOTE | 2019-09-06 14:05 | NUR ---
RECEIVED A MESSAGE FROM THE INFECTION CONTROL AHMED THAT PT HAS A NEGATIVE TEST RESULTS FOR COVID
--- NOTE | 2019-09-06 14:06 | NUR ---
HARSHA WITH MAKENNA MCCLOUD MADE AWARE THAT THE TEST RESULTS IS NEGATIVE, SAID TO CALL HER WHEN PT GET A ROOM IN MS/ TELE FLOOR SPOKE WITH DR LUQUE MADE AWARE OF THE TEST RESULTS, WITH NEW ORDERS OF PARACENTESIS TODAY CHARGE NURSE ALONSO MORALES MADE AWARE THAT PT HAS NEGATIVE TEST RESULTS FOR COVID
--- NOTE | 2019-09-06 14:18 | NUR ---
SPOKE WITH JULIO MADE AWARE OF THE COVID TEST RESULTS
--- NOTE | 2019-09-06 15:10 | NUR ---
JENNIFER MORALES, PATIENT'S GRAND DAUGHTER AT BED SIDE
--- NOTE | 2019-09-06 16:15 | NUR ---
RADIOLOGIST AND FACILITY SERVICE ASSOCIATE AT BED SIDE PRE SET OF VS TAKEN AND EVERY 10 MINUTES PT AWARE, VERBALIS UNDERSTANDING
--- NOTE | 2019-09-06 16:40 | NUR ---
RADIOLOGIST CALLED IN AGAIN, THE DRAINAGE STOP , TRY TO REPOSITION PT FROM SIDE TO SIDE, BUT DID NOT WORK
--- NOTE | 2019-09-06 16:50 | NUR ---
RADIOLOGIST BACK TO THE ROOM AND MAKING A SECOND INCISION AFTER USING THE US MACHINE, LIDOCAINE USED BEFORE ATTEMPTING BY THE RADIOLOGIST PT TOLERATED WELL
--- NOTE | 2019-09-06 17:35 | NUR ---
PT TOLERATED PARACENTESIS WELL WITH 7300 OUT PUT, NO DISTRESS NOTED, VS STABLE
--- NOTE | 2019-09-06 18:22 | NUR ---
ALBUMIN IV INITIATED, PER DR ENE GARCIA
--- NOTE | 2019-09-06 18:27 | NUR ---
SPOKE WITH JENNIFER PATIENT'S GRANDDAUGHTER, MADE AWARE THAT PT TOLERATED THE PROCEDURE, GOING TO ROOM 293A
--- NOTE | 2019-09-06 18:35 | NUR ---
REPORT IS GIVEN TO LAMONTE MORALES, PT IS GOIG TO ROOM 293 A
--- NOTE | 2019-09-06 19:15 | NUR ---
TRANSFER PT TO ROOM 293 A, ALERT ORIENTED X4, NO DISTRESS NOTED, PAIN0/10, FAMILY AWARE
--- NOTE | 2019-09-06 19:20 | NUR ---
Opening Shift Note Assumed care of patient, awake and alert. No S/S of distress/SOB or pain. Respirations clear, regular, and non-labored. Bed locked in lowest position, HOB elevated at least 30 degrees, side rails up x 2, and call light is within each. Fernandez is patent and below the bladder level. Instructed on POC and to call for assistance as needed. Will continue to monitor for changes Q1hr and PRN.
[2019-09-06] MEDS: ATORVASTATIN 20 MG TAB PO SCH (22:36)
[2019-09-06] MEDS: ACETAMINOPHEN 325 MG TAB PO PRN (23:48)
[2019-09-07 05:41] VITALS: BP 111/54
[2019-09-07 05:41] LABS: Hematocrit 24.4 % (36.0-46.0); Mean Corpuscular Hemoglobin 27.9 pg (28.0-32.0); Mean Corpuscular Hgb Conc. 32.8 g/dL (32.0-36.0); Platelet Count (auto) 196 10^3/uL (140-450); Red Blood Cells 2.87 10^6/uL (4.0-5.20); Red Cell Distribution Width 19.3 % (11.8-14.3); White Blood Cell 9.4 10^3/uL (4.4-10.8)
[2019-09-07 05:48] LABS: Basophils % (manual) 0 (0.0-2.0); Blast Cells 0; Eosinophils % (manual) 0 (0-7); Metamyelocytes % 0; Myelocytes % 0; Promyelocytes % 0; Reactive Lymphocytes 0
[2019-09-07 05:55] LABS: INR 1.19 (0.9-1.15); Partial Thromboplastin Time 33.3 sec (23.0-31.2)
[2019-09-07 05:56] LABS: Calcium 7.7 mg/dL (8.5-10.1); Potassium 4.3 mmol/L (3.5-5.1)
[2019-09-07 05:58] LABS: BUN/Creatinine Ratio 38.6
--- NOTE | 2019-09-07 06:20 | NUR ---
Got a call from the lab. Patient's BUN is 80. Hospitalist was paged.
[2019-09-07 06:23] LABS: Band Neutrophils % (manual) 4; Lymphocytes % (manual) 10 (10.0-50.0); Monocytes % (manual) 6 (0-12)
[2019-09-07] MEDS: ACCU-CHEK COMFORT CURVE STRIP VI SCH ×4 (06:33→21:54)
[2019-09-07] MEDS: LEVOTHYROXINE SODIUM 25 MCG TAB PO SCH (06:35)
[2019-09-07] MEDS: InsuLIN REG 1unit/0.01ml Soln (100units/ml) SC SCH ×4 (06:39→22:00)
--- NOTE | 2019-09-07 07:25 | NUR ---
CLOSING NOTE CARE ENDORSED TO DAYSHIFT NURSE. PATIENT IS RESTING IN BED. NO S/S OF RESPIRATORY DISTRESS.
[2019-09-07] MEDS ORDERED: ALBUMIN 25% 100 ML IV ONE (08:15)
[2019-09-07] MEDS ORDERED: ALBUMIN 5% 250 ML IV ONE ×2 (08:30→10:45)
[2019-09-07] MEDS ORDERED: ALBUMIN 25% 100 ML IV SCH ×2 (08:30→16:00)
[2019-09-07 08:58] VITALS: BP 108/51
[2019-09-07] MEDS ORDERED: levoFLOXacin 250MG 50 ML IV ONE (14:00)
--- NOTE | 2019-09-07 14:34 | NUR ---
URINE SAMPLE SENT TO LAB FOR CULTURE.
[2019-09-07] MEDS: ALBUMIN 25% 100 ML IV SCH (15:45)
[2019-09-07] MEDS ORDERED: WARFARIN SODIUM 5 MG TAB PO ONE (17:00)
[2019-09-07 17:23] VITALS: BP 120/56
[2019-09-07 18:59] VITALS: BP 108/51
--- NOTE | 2019-09-07 19:25 | NUR ---
Opening Shift Note Assumed care of patient. Patient is awake, alert, and oriented X 3. No S/S of respiratory distress/SOB or pain noted or reported. Patient s on 2 LPM O2 via NC. Respirations are regular and non-labored. Bed locked in lowest position, HOB elevated, side rails up x 2, and call light is within each. Fernandez is patent and below the bladder level. POC discussed with the patient. Instructed to call for assistance as needed. Will continue to monitor for changes Q1hr and PRN.
[2019-09-07 20:00] VITALS: BP 110/55
[2019-09-07] MEDS: ATORVASTATIN 20 MG TAB PO SCH (21:54)
[2019-09-07 22:00] VITALS: BP 110/55
[2019-09-08] MEDS: ALBUMIN 25% 100 ML IV SCH (00:23)
[2019-09-08] MEDS: ACETAMINOPHEN 325 MG TAB PO PRN (00:34)
--- NOTE | 2019-09-08 03:45 | NUR ---
Nosebleed Patient has a short episode of nose bleeding from the right nostril. Patient could not explain what happened. "I had the same before. Nothing is new". Ice pack was applied. Patient is resting in bed. No respiratory distress. Blood pressure is 110/52 mmHg. Will continue to monitor PRN.
[2019-09-08 04:54] VITALS: BP 119/61
[2019-09-08] MEDS: ACCU-CHEK COMFORT CURVE STRIP VI SCH ×2 (06:48→11:56)
[2019-09-08] MEDS: LEVOTHYROXINE SODIUM 25 MCG TAB PO SCH (06:48)
[2019-09-08] MEDS: InsuLIN REG 1unit/0.01ml Soln (100units/ml) SC SCH ×2 (06:51→11:58)
[2019-09-08 08:21] LABS: INR 1.24 (0.9-1.15); Partial Thromboplastin Time 34.5 sec (23.0-31.2)
[2019-09-08 08:31] LABS: BUN/Creatinine Ratio 42.9; Calcium 8.1 mg/dL (8.5-10.1)
[2019-09-08] MEDS ORDERED: levoFLOXacin 250MG 50 ML IV SCH (10:00)
--- NOTE | 2019-09-08 10:05 | NUR ---
SPOKE WITH DR. SANTANA, SHE SAID PT IS CLEARED FOR DISCHARGE.
--- NOTE | 2019-09-08 10:15 | NUR ---
RIGHT NASAL PACKING REMOVED PER DR. LUQUE'S ORDER, NOTED MINIMAL BLEEDING BLEEDING , ICE PACK APPLIED, DR. LUQUE INFORMED. WILL CONTINUE TO MONITOR.
--- NOTE | 2019-09-08 10:45 | NUR ---
Pt declined PT eval, will attempt later.
[2019-09-08] MEDS: ONDANSETRON HCL 4 MG/2 ML VIAL IV PRN (10:54)
[2019-09-08 12:20] VITALS: BP 108/51
--- NOTE | 2019-09-08 12:32 | NUR ---
CORE MEASURE CHF, PER DR. LUQUE PT WILL RESUME HOME MEDICATIONS.
--- NOTE | 2019-09-08 12:35 | NUR ---
SPOKE TO JULIO THE DAUGHTER MADE AWARE PT IS READY TO GO HOME IN 30 MINUTES, SHE SAID SHE WILL BE ABLE TO QUALITY REVIEWER THE PT AT 2PM.
--- NOTE | 2019-09-08 14:40 | NUR ---
Discharge instructions given as ordered. Encourage to follow up with DR. Peng as instructed, pt will make her own appointment. All questions and concerns addressed. Patient verbalized understanding. Medication reconciliation form completed and copy given to patient. IV removed with catheter intact, pressure dressing applied, stevenson catheter removed. Telemetry unit returned to ICU. Patient taken to vehicle via wheelchair with all personal belongings, accompanied by staff and family member. No distress noted at time of departure.
== END 2019-09-08 14:40 | disposition home or self-care (01) | DRG 432 ==
LOC: ER 19:23 → EDBD 19:23 → TELE-EAST 19:24 → TELE-WESTW 09-06 19:34
PROVIDERS: ADMIT Nurse Practitioner; ATTEND Internal Medicine
PROC: 30233L1 Transfusion of Nonautologous Fresh Plasma into Peripheral Vein, Percutaneous Approach (ICD-10-PCS; 2019-09-05)
PROC: 0W9G3ZZ Drainage of Peritoneal Cavity, Percutaneous Approach (ICD-10-PCS; principal; 2019-09-06)
DX: K74.60 Unspecified cirrhosis of liver (principal); I50.43 Acute on chronic combined systolic (congestive) and diastolic (congestive) heart failure; E43 Unspecified severe protein-calorie malnutrition; N17.0 Acute kidney failure with tubular necrosis; J96.20 Acute and chronic respiratory failure, unspecified whether with hypoxia or hypercapnia; I48.20 Chronic atrial fibrillation, unspecified; K76.6 Portal hypertension; I13.0 Hypertensive heart and chronic kidney disease with heart failure and stage 1 through stage 4 chronic kidney disease, or unspecified chronic kidney disease; R18.8 Other ascites; D68.59 Other primary thrombophilia; N39.0 Urinary tract infection, site not specified; D64.9 Anemia, unspecified; N18.3 Chronic kidney disease, stage 3 (moderate); E78.5 Hyperlipidemia, unspecified; E11.22 Type 2 diabetes mellitus with diabetic chronic kidney disease; E03.9 Hypothyroidism, unspecified; E11.21 Type 2 diabetes mellitus with diabetic nephropathy; E11.40 Type 2 diabetes mellitus with diabetic neuropathy, unspecified; I05.0 Rheumatic mitral stenosis; I25.10 Atherosclerotic heart disease of native coronary artery without angina pectoris; I49.5 Sick sinus syndrome; Z20.828 Contact with and (suspected) exposure to other viral communicable diseases; Z80.7 Family history of other malignant neoplasms of lymphoid, hematopoietic and related tissues; Z82.49 Family history of ischemic heart disease and other diseases of the circulatory system; Z86.73 Personal history of transient ischemic attack (TIA), and cerebral infarction without residual deficits; Z95.0 Presence of cardiac pacemaker; Z95.1 Presence of aortocoronary bypass graft; Z90.710 Acquired absence of both cervix and uterus; Z82.3 Family history of stroke; K57.30 Diverticulosis of large intestine without perforation or abscess without bleeding; T45.515A Adverse effect of anticoagulants, initial encounter; R04.0 Epistaxis; Z68.33 Body mass index [BMI] 33.0-33.9, adult; B96.20 Unspecified Escherichia coli [E. coli] as the cause of diseases classified elsewhere
CPT/HCPCS: 10022; 36415; 71045; 74176; 76942; 80048; 80053; 81001; 82962; 83880; 84484; 85007; 85025; 85027; 85379; 85610; 85730; 86850; 86900; 86901; 87070; 87086; 87088; 87186; 87804; 87880; 93005; 93306; 96374; G0378; J1815; J2405; P9047